=== PATIENT | male | born 1950 | race Caucasian/White ===

== ENCOUNTER 2020-12-19 12:51 | Outpatient (CLI) | payer MEDICARE | END 2020-12-19 12:52 | disposition home or self-care (01) | LOC: ULT 12:51 | PROVIDERS: ATTEND Internal Medicine Hematology & Oncology | DX: Z51.11 Encounter for antineoplastic chemotherapy (principal); C90.00 Multiple myeloma not having achieved remission; I08.3 Combined rheumatic disorders of mitral, aortic and tricuspid valves | CPT/HCPCS: 93306 ==

== ENCOUNTER 2020-12-22 07:35 | Outpatient (CLI) | payer MEDICARE | END 2020-12-22 07:36 | disposition home or self-care (01) | LOC: PET 07:35 | PROVIDERS: ATTEND Internal Medicine Hematology & Oncology | DX: C90.00 Multiple myeloma not having achieved remission (principal); M89.9 Disorder of bone, unspecified | CPT/HCPCS: 78816; A9552 ==

== ENCOUNTER 2021-01-30 09:09 | Inpatient (IN) | payer MEDICARE ==
[2021-01-30] MEDS ORDERED: Iopamidol-370 76% 500 ML 1 ML ONE (09:19)
[2021-01-30 09:56] LABS: Mean Corpuscular HGB CONC 33.8 g/dL (32.0-36.0); Mean Corpuscular Hemoglobin 29.8 pg (27.0-31.0); Mean Corpuscular Volume 88.3 fL (78.0-98.0); Mean Platelet Volume 8.7 fL (7.4-10.4); Platelet Count 225 thou/uL (130-400); RBC Distribution Width 15.6 % (11.5-14.5); Red Blood Cell (RBC) Count 3.02 mill/uL (4.70-6.10); White Blood Cell (WBC) Count 16.1 thou/uL (4.8-10.8)
[2021-01-30] MEDS ORDERED: Ketorolac Tromethamine 30 MG/ML VIAL ONE (09:59)
[2021-01-30 10:07] LABS: ALT (SGPT) 223 U/L (8-55); AST (SGOT) 176 U/L (5-34); Albumin 2.6 g/dL (3.4-4.8); Alkaline Phosphatase 197 U/L (40-110); Anion Gap 17 mmol/L (10-20); BUN (Urea Nitrogen) 39 mg/dL (8.4-25.7); Bilirubin, Total 0.3 mg/dL (0.2-1.2); Calc. Creatinine Clearance 0 mL/min (70-130); Carbon Dioxide 13 mmol/L (23-31); Chloride 109 mmol/L (98-107); Glucose 166 mg/dL (80-115); Lipase 16 U/L (8-78); Protein, Total 5.6 g/dL (5.8-8.1); Sodium 136 mmol/L (136-145)
[2021-01-30 10:23] LABS: Anisocytosis SLIGHT = 6-15 cells (100X) (0-5/hpf); Band 21 % (5-11); Eosinophils 1 % (0-10); Lymphocytes 3 % (21-51); MDiff Complete? YES; Metamyelocyte 1 % (0-0); Monocytes 2 % (0-10); Neutrophil 72 % (42-75); Platelet Morphology Comment Appears Adequate; Poikilocytosis SLIGHT = 6-15 cells (100X) (0-5/hpf)
[2021-01-30] MEDS ORDERED: Cefepime 2 GM VIAL ONE (11:38)
[2021-01-30] MEDS ORDERED: Vancomycin 1 GM/200 ML BAG ONE (12:22)
[2021-01-30 13:06] LABS: Lactic Acid 2.6 mmol/L (0.5-2.2)
[2021-01-30] MEDS ORDERED: Ondansetron ODT 4 MG TAB PO PRN (14:07)
[2021-01-30 14:09] LABS: SARS-CoV-2 NAA Rapid Test Not Detected (NotDetected)
[2021-01-30] MEDS ORDERED: Potassium Chloride 20 MEQ TAB PO SCH (14:30)
[2021-01-30 15:41] VITALS: BMI 25.8
[2021-01-30] MEDS: Nicotine 14 MG PATCH TD SCH (16:33)
[2021-01-30] MEDS: Lactated Ringer's 1,000 ML IV SCH (20:17)
[2021-01-30 21:15] LABS: HBCM Index 0.06 S/CO (0-0.79); HBSAg Index 0.34 S/CO (0-0.99); Hep A IgM AB Non-Reactive (NonReactive); Hep A IgM S/CO 0.13 S/CO (0-0.79); Hep B Surf Ag Non-Reactive S/CO (NonReactive); Hep C IgG Ab Non-Reactive (NonReactive); Hep C Index 0.05 S/CO (0-0.79); Hepatitis B Core IgM Abs Non-Reactive (NonReactive)
[2021-01-31] MEDS: Lactated Ringer's 1,000 ML IV SCH ×4 (01:42→20:19)
[2021-01-31] MEDS: traMADol HCl 50 MG TAB PO PRN ×2 (01:42→09:43)
[2021-01-31 04:20] LABS: ALT (SGPT) 257 U/L (8-55); AST (SGOT) 208 U/L (5-34); Albumin 2.2 g/dL (3.4-4.8); Alkaline Phosphatase 173 U/L (40-110); Anion Gap 11 mmol/L (10-20); BUN (Urea Nitrogen) 39 mg/dL (8.4-25.7); Bilirubin, Total 0.3 mg/dL (0.2-1.2); Calc. Creatinine Clearance 47 mL/min (70-130); Carbon Dioxide 16 mmol/L (23-31); Chloride 114 mmol/L (98-107); Globulin 2.2 g/dL (2.4-3.5); Glucose 101 mg/dL (80-115); Potassium 3.3 mmol/L (3.5-5.1); Protein, Total 4.4 g/dL (5.8-8.1); Sodium 138 mmol/L (136-145)
[2021-01-31 04:23] LABS: Calcium 5.5 mg/dL (7.8-10.44); Hemoglobin 7.3 g/dL (14.0-18.0); Mean Corpuscular HGB CONC 34.5 g/dL (32.0-36.0); Mean Corpuscular Hemoglobin 30.4 pg (27.0-31.0); Mean Corpuscular Volume 88.4 fL (78.0-98.0); Mean Platelet Volume 8.6 fL (7.4-10.4); Platelet Count 168 thou/uL (130-400); RBC Distribution Width 15.4 % (11.5-14.5); Red Blood Cell (RBC) Count 2.39 mill/uL (4.70-6.10)
[2021-01-31] MEDS ORDERED: Potassium Chloride 20 MEQ TAB PO SCH (04:45)
[2021-01-31] MEDS ORDERED: Calcium Gluconate 9.2 MEQ in Sodium Chloride 0.9% 100 ML IVPB SCH ×2 (05:00→12:30)
[2021-01-31 05:25] LABS: Band 28 % (5-11); Eosinophils 10 % (0-10); Lymphocytes 7 % (21-51); MDiff Complete? YES; Neutrophil 54 % (42-75); Reactive Lymphocytes 1 % (0-10)
[2021-01-31 06:25] LABS: Magnesium 1.4 mg/dL (1.6-2.6); Phosphorus 2.7 mg/dL (2.3-4.7)
[2021-01-31] MEDS ORDERED: Magnesium Sulfate 2 GM in Sodium Chloride 0.9% 100 ML IVPB SCH (06:30)
[2021-01-31] MEDS ORDERED: Magnesium 2 GM/50 ML 2 GM in Premix Bag 1 BAG IVPB SCH ×2 (06:45→12:45)
[2021-01-31] MEDS: Enoxaparin Sodium 40 MG/0.4 ML SYRINGE SC SCH (08:17)
[2021-01-31] MEDS: Aspirin Chewable 81 MG TAB PO SCH (08:17)
[2021-01-31 08:18] LABS: Lactic Acid 1.6 mmol/L (0.5-2.2)
[2021-01-31 08:21] LABS: Iron 24 ug/dL (65-175); Iron Binding Capacity, Total 135 mcg/dL (261-462)
[2021-01-31 08:54] LABS: Iron 26 ug/dL (65-175); Iron Binding Capacity, Total 139 mcg/dL (261-462)
[2021-01-31] MEDS ORDERED: Iron Sucrose Complex 200 MG in Sodium Chloride 0.9% 100 ML IVPB SCH (10:45)
[2021-01-31] MEDS ORDERED: Iron, Sodium Ferric Gluconate 250 MG in Sodium Chloride 0.9% 250 ML 250 ML IVPB SCH (11:30)
[2021-01-31 12:01] LABS: Anion Gap 12 mmol/L (10-20); BUN (Urea Nitrogen) 33 mg/dL (8.4-25.7); Calc. Creatinine Clearance 53 mL/min (70-130); Carbon Dioxide 16 mmol/L (23-31); Chloride 114 mmol/L (98-107); Glucose 91 mg/dL (80-115); Magnesium 1.3 mg/dL (1.6-2.6); Potassium 3.7 mmol/L (3.5-5.1); Sodium 138 mmol/L (136-145)
[2021-01-31] MEDS ORDERED: Magnesium Sulfate 2 GM in Sodium Chloride 0.9% 100 ML IVPB ONE (12:20)
[2021-01-31] MEDS: Nicotine 14 MG PATCH TD SCH (15:05)
[2021-02-01 03:52] LABS: Hemoglobin 7.3 g/dL (14.0-18.0); Mean Corpuscular Hemoglobin 30.2 pg (27.0-31.0); Mean Corpuscular Volume 88.8 fL (78.0-98.0); Mean Platelet Volume 8.9 fL (7.4-10.4); Platelet Count 151 thou/uL (130-400); RBC Distribution Width 15.8 % (11.5-14.5); Red Blood Cell (RBC) Count 2.42 mill/uL (4.70-6.10); White Blood Cell (WBC) Count 9.9 thou/uL (4.8-10.8)
[2021-02-01] MEDS: Lactated Ringer's 1,000 ML IV SCH (04:05)
[2021-02-01 04:09] LABS: ALT (SGPT) 398 U/L (8-55); AST (SGOT) 290 U/L (5-34); Alkaline Phosphatase 172 U/L (40-110); Anion Gap 8 mmol/L (10-20); BUN (Urea Nitrogen) 27 mg/dL (8.4-25.7); Bilirubin, Total 0.3 mg/dL (0.2-1.2); Calc. Creatinine Clearance 67 mL/min (70-130); Calcium 6.1 mg/dL (7.8-10.44); Carbon Dioxide 16 mmol/L (23-31); Chloride 115 mmol/L (98-107); Glucose 87 mg/dL (80-115); Magnesium 1.6 mg/dL (1.6-2.6); Phosphorus 2.8 mg/dL (2.3-4.7); Potassium 3.2 mmol/L (3.5-5.1); Sodium 136 mmol/L (136-145)
[2021-02-01 04:40] LABS: Band 15 % (5-11); Eosinophils 3 % (0-10); Lymphocytes 7 % (21-51); MDiff Complete? YES; Monocytes 5 % (0-10); Neutrophil 70 % (42-75)
[2021-02-01] MEDS ORDERED: Potassium Chloride 20 MEQ TAB PO SCH (08:00)
[2021-02-01 08:28] VITALS: BP 120/58; TEMP 98.2
[2021-02-01] MEDS: traMADol HCl 50 MG TAB PO PRN (08:46)
[2021-02-01] MEDS: Aspirin Chewable 81 MG TAB PO SCH (08:46)
[2021-02-01] MEDS: Enoxaparin Sodium 40 MG/0.4 ML SYRINGE SC SCH (08:46)
[2021-02-01] MEDS ORDERED: Magnesium 2 GM/50 ML 2 GM in Premix Bag 1 BAG IVPB SCH (09:30)
[2021-02-01] MEDS: Nicotine 14 MG PATCH TD SCH (16:35)
[2021-02-01 17:08] LABS: ALT (SGPT) 473 U/L (8-55); AST (SGOT) 325 U/L (5-34); Albumin 2.1 g/dL (3.4-4.8); Alkaline Phosphatase 196 U/L (40-110); Anion Gap 11 mmol/L (10-20); BUN (Urea Nitrogen) 25 mg/dL (8.4-25.7); Bilirubin, Total 0.3 mg/dL (0.2-1.2); Calc. Creatinine Clearance 71 mL/min (70-130); Calcium 6.3 mg/dL (7.8-10.44); Carbon Dioxide 15 mmol/L (23-31); Chloride 115 mmol/L (98-107); Globulin 2.2 g/dL (2.4-3.5); Glucose 86 mg/dL (80-115); Magnesium 2.1 mg/dL (1.6-2.6); Phosphorus 2.9 mg/dL (2.3-4.7); Potassium 3.6 mmol/L (3.5-5.1); Protein, Total 4.3 g/dL (5.8-8.1); Sodium 137 mmol/L (136-145)
== END 2021-02-01 18:55 | disposition home or self-care (01) | DRG 393 ==
LOC: ERS 09:09 → ERHOLD 12:09 → ONC 15:29
PROVIDERS: ADMIT Family Medicine; ATTEND Family Medicine
DX: K52.1 Toxic gastroenteritis and colitis (principal); E43 Unspecified severe protein-calorie malnutrition; C90.00 Multiple myeloma not having achieved remission; E87.2 Acidosis; N17.9 Acute kidney failure, unspecified; F17.210 Nicotine dependence, cigarettes, uncomplicated; T50.905A Adverse effect of unspecified drugs, medicaments and biological substances, initial encounter; E87.6 Hypokalemia; I12.9 Hypertensive chronic kidney disease with stage 1 through stage 4 chronic kidney disease, or unspecified chronic kidney disease; D72.829 Elevated white blood cell count, unspecified; N18.30 Chronic kidney disease, stage 3 unspecified; D63.1 Anemia in chronic kidney disease; T45.1X5A Adverse effect of antineoplastic and immunosuppressive drugs, initial encounter; Z20.822 Contact with and (suspected) exposure to COVID-19; E86.0 Dehydration; E83.42 Hypomagnesemia; E83.51 Hypocalcemia; Z68.25 Body mass index [BMI] 25.0-25.9, adult; Z90.49 Acquired absence of other specified parts of digestive tract; Z79.82 Long term (current) use of aspirin; Z79.899 Other long term (current) drug therapy
CPT/HCPCS: 0240U; 36415; 71045; 74177; 76705; 80053; 80074; 82728; 83540; 83550; 83605; 83690; 83735; 84100; 84484; 85025; 87040; 87045; 87046; 87324; 87427; 87449; 93005; 96365; 96367; 96375; J0692; J1650; J1885; J2001; J2916; J3370; J3475; J3490; J7050; Q0162; Q9967

== ENCOUNTER 2021-05-22 15:58 | Inpatient (IN) | payer MEDICARE ==
[~2021-05-22 15:58] MED LIST: Iopamidol-370 76% 500 ML 1 ML ONE
[2021-05-22 17:18] LABS: Hemoglobin 7.2 g/dL (14.0-18.0); Mean Corpuscular Hemoglobin 28.2 pg (27.0-31.0); Mean Corpuscular Volume 91.2 fL (78.0-98.0); RBC Distribution Width 14.5 % (11.5-14.5); Red Blood Cell (RBC) Count 2.56 mill/uL (4.70-6.10); White Blood Cell (WBC) Count 8.5 thou/uL (4.8-10.8)
[2021-05-22 17:23] LABS: INR-International Normal Ratio 1.9; Prothrombin Time 21.8 sec (12.0-14.7)
[2021-05-22 17:26] LABS: ALT (SGPT) 60 U/L (8-55); AST (SGOT) 79 U/L (5-34); Albumin 1.5 g/dL (3.4-4.8); Alkaline Phosphatase 83 U/L (40-110); Anion Gap 10 mmol/L (10-20); BUN (Urea Nitrogen) 29 mg/dL (8.4-25.7); Bilirubin, Total 0.3 mg/dL (0.2-1.2); Calc. Creatinine Clearance 0 mL/min (70-130); Calcium 7.2 mg/dL (7.8-10.44); Carbon Dioxide 18 mmol/L (23-31); Chloride 112 mmol/L (98-107); Globulin 7.5 g/dL (2.4-3.5); Glucose 111 mg/dL (80-115); Potassium 3.4 mmol/L (3.5-5.1); Sodium 137 mmol/L (136-145)
[2021-05-22 17:34] LABS: Band 25 % (5-11); Lymphocytes 21 % (21-51); MDiff Complete? YES; Mean Platelet Volume 9.2 fL (7.4-10.4); Monocytes 16 % (0-10); Neutrophil 38 % (42-75); Platelet Count 49 thou/uL (130-400); Platelet Morphology Comment Appears Decreased
[2021-05-22] MEDS ORDERED: Potassium Chloride 20 MEQ TAB ONE (17:59)
[2021-05-22] MEDS ORDERED: Calcium Carbonate 500 MG ChewTAB ONE (17:59)
[2021-05-22] MEDS ORDERED: Magnesium 2 GM/50 ML BAG (IN WATER) ONE (18:02)
[2021-05-22 18:15] LABS: Magnesium 1.7 mg/dL (1.6-2.6)
[2021-05-22 21:16] LABS: Bacteria/HPF None Seen HPF (None Seen); Bilirubin Negative (Negative); Blood, Urine Negative (Negative); Clarity Clear (Clear); Glucose, Urine (Dipstick) Normal (Negative); Ketone, Urine Negative (Negative); Leukocyte Negative Leu/uL (Negative); Nitrite Negative (Negative); Protein, Urine (Dipstick) 30 mg/dL (Neg-Trace); RBC/HPF 0-3 HPF (0-3); Specific Gravity, Urine 1.022 (1.002-1.036); Squamous Epithelial 0-3 HPF (0-3); Urobilinogen Normal mg/dL (Less than 2); WBC/HPF 0-3 HPF (0-3); pH, Urine 6.5 (5.0-9.0)
[2021-05-22] MEDS ORDERED: Ondansetron ODT 4 MG TAB PO PRN (22:23)
[2021-05-22] MEDS ORDERED: Acetaminophen 325 MG TAB PO PRN (22:23)
[2021-05-22] MEDS ORDERED: Acetaminophen 650 MG Suppository PR PRN (22:23)
[2021-05-22] MEDS ORDERED: Ondansetron PF 4 MG/2 ML Vial IVP PRN (22:23)
[2021-05-23 00:01] VITALS: BMI 21.4
[2021-05-23] MEDS ORDERED: Lactated Ringer's 1,000 ML IV SCH (00:45)
[2021-05-23] MEDS ORDERED: traMADol HCl 50 MG TAB PO PRN (00:50)
[2021-05-23] MEDS: valACYclovir 500 MG TAB PO SCH (08:40)
[2021-05-23] MEDS: Folic Acid 1 MG TAB PO SCH (08:40)
[2021-05-23] MEDS: Allopurinol 300 MG TAB PO SCH (08:40)
[2021-05-23] MEDS: Calcium Carbonate 600 MG + Vit D TAB PO SCH (08:40)
[2021-05-23] MEDS: Magnesium Oxide 400 MG TAB PO SCH ×2 (08:40→20:40)
[2021-05-23] MEDS: Ferrous Sulfate 325 MG TAB PO SCH (08:44)
[2021-05-23] MEDS ORDERED: Pantoprazole 40 MG GRANULES PACKET PO SCH (09:00)
[2021-05-23 09:07] LABS: Anion Gap 10 mmol/L (10-20); BUN (Urea Nitrogen) 26 mg/dL (8.4-25.7); Calc. Creatinine Clearance 60 mL/min (70-130); Calcium 7.1 mg/dL (7.8-10.44); Carbon Dioxide 17 mmol/L (23-31); Chloride 113 mmol/L (98-107); Glucose 84 mg/dL (80-115); Sodium 136 mmol/L (136-145)
[2021-05-23 09:25] LABS: Band 22 % (5-11); Differential Comment Immature Cell(s); Lymphocytes 16 % (21-51); MDiff Complete? YES; Mean Corpuscular HGB CONC 33.1 g/dL (32.0-36.0); Mean Corpuscular Hemoglobin 29.7 pg (27.0-31.0); Mean Corpuscular Volume 89.6 fL (78.0-98.0); Mean Platelet Volume 9.3 fL (7.4-10.4); Metamyelocyte 4 % (0-0); Monocytes 1 % (0-10); Myelocyte 5 % (0-0); Neutrophil 43 % (42-75); Platelet Count 48 thou/uL (130-400); Platelet Morphology Comment Appears Decreased; Polychromasia SLIGHT = 2-3 cells (100X) (0-2/hpf); Reactive Lymphocytes 6 % (0-10); Reflex for Review?? NO; Rouleaux Formation MODERATE= 6-15 cells (100X) (None Seen); White Blood Cell (WBC) Count 10.8 thou/uL (4.8-10.8)
[2021-05-23 14:43] LABS: SARS-CoV-2 PCR by NAA Not Detected (NotDetected)
[2021-05-23 18:53] LABS: Magnesium 1.7 mg/dL (1.6-2.6)
[2021-05-23] MEDS: traMADol HCl 50 MG TAB PO PRN (20:39)
[2021-05-23] MEDS: Pantoprazole 40 MG VIAL IVP SCH (20:40)
[2021-05-23] MEDS: Lisinopril 20 MG TAB PO SCH (20:40)
[2021-05-24] MEDS: Ferrous Sulfate 325 MG TAB PO SCH (07:51)
[2021-05-24] MEDS: Pantoprazole 40 MG VIAL IVP SCH ×2 (07:52→20:57)
[2021-05-24] MEDS: valACYclovir 500 MG TAB PO SCH (07:52)
[2021-05-24] MEDS: Allopurinol 300 MG TAB PO SCH (07:52)
[2021-05-24] MEDS: Magnesium Oxide 400 MG TAB PO SCH ×2 (07:52→20:57)
[2021-05-24] MEDS: Calcium Carbonate 600 MG + Vit D TAB PO SCH (07:52)
[2021-05-24] MEDS: Folic Acid 1 MG TAB PO SCH (07:52)
[2021-05-24 08:10] LABS: Hemoglobin 7.4 g/dL (14.0-18.0)
[2021-05-24 08:18] LABS: Anion Gap 9 mmol/L (10-20); BUN (Urea Nitrogen) 28 mg/dL (8.4-25.7); Calc. Creatinine Clearance 64 mL/min (70-130); Calcium 6.8 mg/dL (7.8-10.44); Carbon Dioxide 15 mmol/L (23-31); Chloride 115 mmol/L (98-107); Glucose 67 mg/dL (80-115); Magnesium 1.6 mg/dL (1.6-2.6); Potassium 3.4 mmol/L (3.5-5.1); Sodium 136 mmol/L (136-145)
[2021-05-24] MEDS ORDERED: FLU VACC QS2021-22(65YR UP)/PF 240 MCG/0.7 ML SYRINGE IM ONE (09:00)
[2021-05-24] MEDS ORDERED: PROPOFOL 200 MG/20 ML VIAL ONE (09:50)
[2021-05-24] MEDS ORDERED: Potassium Chloride 20 MEQ in Premix Bag 1 BAG IVPB SCH (13:30)
[2021-05-24] MEDS ORDERED: Magnesium 2 GM/50 ML 2 GM in Premix Bag 1 BAG IVPB SCH (13:30)
[2021-05-24] MEDS: traMADol HCl 50 MG TAB PO PRN (20:56)
[2021-05-24] MEDS: Lisinopril 20 MG TAB PO SCH (20:57)
[2021-05-25 04:35] LABS: Hemoglobin 6.4 g/dL (14.0-18.0)
[2021-05-25 04:59] LABS: ALT (SGPT) 50 U/L (8-55); AST (SGOT) 57 U/L (5-34); Albumin 1.2 g/dL (3.4-4.8); Alkaline Phosphatase 67 U/L (40-110); Anion Gap 9 mmol/L (10-20); BUN (Urea Nitrogen) 26 mg/dL (8.4-25.7); Bilirubin, Total 0.3 mg/dL (0.2-1.2); Calc. Creatinine Clearance 60 mL/min (70-130); Calcium 6.8 mg/dL (7.8-10.44); Carbon Dioxide 16 mmol/L (23-31); Chloride 113 mmol/L (98-107); Globulin 6.7 g/dL (2.4-3.5); Glucose 65 mg/dL (80-115); Magnesium 1.9 mg/dL (1.6-2.6); Potassium 3.6 mmol/L (3.5-5.1); Protein, Total 7.9 g/dL (5.8-8.1); Sodium 134 mmol/L (136-145)
[2021-05-25] MEDS: Folic Acid 1 MG TAB PO SCH (08:46)
[2021-05-25] MEDS: Ferrous Sulfate 325 MG TAB PO SCH (08:46)
[2021-05-25] MEDS: Calcium Carbonate 600 MG + Vit D TAB PO SCH (08:46)
[2021-05-25] MEDS: Pantoprazole 40 MG VIAL IVP SCH ×2 (08:46→20:18)
[2021-05-25] MEDS: valACYclovir 500 MG TAB PO SCH (08:46)
[2021-05-25] MEDS: Magnesium Oxide 400 MG TAB PO SCH ×2 (08:46→20:18)
[2021-05-25] MEDS: Allopurinol 300 MG TAB PO SCH (08:46)
[2021-05-25 09:07] LABS: Platelet Count 46 thou/uL (130-400)
[2021-05-25] MEDS: traMADol HCl 50 MG TAB PO PRN ×2 (13:05→20:19)
[2021-05-25 16:15] LABS: Hemoglobin 7.3 g/dL (14.0-18.0)
[2021-05-25] MEDS: Phytonadione 5 MG TAB PO SCH ×2 (16:35→20:19)
[2021-05-25] MEDS: Lisinopril 20 MG TAB PO SCH (20:18)
[2021-05-26 05:03] LABS: Hemoglobin 7.5 g/dL (14.0-18.0); Platelet Count 47 thou/uL (130-400)
[2021-05-26 05:18] LABS: ALT (SGPT) 55 U/L (8-55); AST (SGOT) 61 U/L (5-34); Albumin 1.2 g/dL (3.4-4.8); Alkaline Phosphatase 69 U/L (40-110); Anion Gap 11 mmol/L (10-20); BUN (Urea Nitrogen) 27 mg/dL (8.4-25.7); Bilirubin, Total 0.4 mg/dL (0.2-1.2); Calc. Creatinine Clearance 59 mL/min (70-130); Calcium 6.3 mg/dL (7.8-10.44); Carbon Dioxide 14 mmol/L (23-31); Chloride 113 mmol/L (98-107); Globulin 6.9 g/dL (2.4-3.5); Potassium 3.6 mmol/L (3.5-5.1); Protein, Total 8.1 g/dL (5.8-8.1); Sodium 134 mmol/L (136-145)
[2021-05-26 05:21] LABS: Glucose 53 mg/dL (80-115)
[2021-05-26] MEDS: valACYclovir 500 MG TAB PO SCH (08:42)
[2021-05-26] MEDS: Allopurinol 300 MG TAB PO SCH (08:42)
[2021-05-26] MEDS: Calcium Carbonate 600 MG + Vit D TAB PO SCH (08:42)
[2021-05-26] MEDS: Magnesium Oxide 400 MG TAB PO SCH ×2 (08:42→21:47)
[2021-05-26] MEDS: Folic Acid 1 MG TAB PO SCH (08:42)
[2021-05-26] MEDS: Pantoprazole 40 MG VIAL IVP SCH ×2 (08:42→21:48)
[2021-05-26] MEDS: Phytonadione 5 MG TAB PO SCH ×3 (08:42→21:47)
[2021-05-26] MEDS: Ferrous Sulfate 325 MG TAB PO SCH (08:42)
[2021-05-26] MEDS: traMADol HCl 50 MG TAB PO PRN (16:07)
[2021-05-26] MEDS: Lisinopril 20 MG TAB PO SCH (21:47)
[2021-05-27 07:05] LABS: ALT (SGPT) 54 U/L (8-55); AST (SGOT) 50 U/L (5-34); Albumin 1.2 g/dL (3.4-4.8); Alkaline Phosphatase 68 U/L (40-110); Anion Gap 9 mmol/L (10-20); BUN (Urea Nitrogen) 24 mg/dL (8.4-25.7); Bilirubin, Total 0.3 mg/dL (0.2-1.2); Calc. Creatinine Clearance 53 mL/min (70-130); Calcium 6.6 mg/dL (7.8-10.44); Carbon Dioxide 16 mmol/L (23-31); Chloride 114 mmol/L (98-107); Globulin 7.3 g/dL (2.4-3.5); Glucose 71 mg/dL (80-115); Potassium 3.8 mmol/L (3.5-5.1); Protein, Total 8.5 g/dL (5.8-8.1); Sodium 135 mmol/L (136-145)
[2021-05-27 07:22] LABS: Hemoglobin 7.2 g/dL (14.0-18.0); Platelet Count 40 thou/uL (130-400)
[2021-05-27] MEDS: valACYclovir 500 MG TAB PO SCH (08:32)
[2021-05-27] MEDS: Folic Acid 1 MG TAB PO SCH (08:32)
[2021-05-27] MEDS: Pantoprazole 40 MG VIAL IVP SCH ×2 (08:32→20:57)
[2021-05-27] MEDS: Ferrous Sulfate 325 MG TAB PO SCH (08:32)
[2021-05-27] MEDS: Magnesium Oxide 400 MG TAB PO SCH ×2 (08:32→20:56)
[2021-05-27] MEDS: Phytonadione 5 MG TAB PO SCH ×3 (08:32→20:56)
[2021-05-27] MEDS: Calcium Carbonate 600 MG + Vit D TAB PO SCH (08:33)
[2021-05-27] MEDS: Allopurinol 300 MG TAB PO SCH (08:33)
[2021-05-27] MEDS: Lisinopril 20 MG TAB PO SCH (20:56)
[2021-05-28 05:58] LABS: Hemoglobin 7.3 g/dL (14.0-18.0); Platelet Count 40 thou/uL (130-400)
[2021-05-28 06:21] LABS: ALT (SGPT) 50 U/L (8-55); AST (SGOT) 45 U/L (5-34); Albumin 1.2 g/dL (3.4-4.8); Alkaline Phosphatase 69 U/L (40-110); Anion Gap 10 mmol/L (10-20); BUN (Urea Nitrogen) 22 mg/dL (8.4-25.7); Calc. Creatinine Clearance 60 mL/min (70-130); Calcium 6.4 mg/dL (7.8-10.44); Carbon Dioxide 15 mmol/L (23-31); Chloride 114 mmol/L (98-107); Globulin 7.5 g/dL (2.4-3.5); Glucose 70 mg/dL (80-115); Potassium 3.7 mmol/L (3.5-5.1); Protein, Total 8.7 g/dL (5.8-8.1); Sodium 135 mmol/L (136-145)
[2021-05-28 06:41] LABS: Bilirubin, Total 0.2 mg/dL (0.2-1.2)
[2021-05-28] MEDS: Phytonadione 5 MG TAB PO SCH ×2 (08:37→15:52)
[2021-05-28] MEDS: Pantoprazole 40 MG VIAL IVP SCH (08:37)
[2021-05-28] MEDS: valACYclovir 500 MG TAB PO SCH (08:38)
[2021-05-28] MEDS: Calcium Carbonate 600 MG + Vit D TAB PO SCH (08:38)
[2021-05-28] MEDS: Ferrous Sulfate 325 MG TAB PO SCH (08:38)
[2021-05-28] MEDS: Folic Acid 1 MG TAB PO SCH (08:38)
[2021-05-28] MEDS: Allopurinol 300 MG TAB PO SCH (08:38)
[2021-05-28 09:23] VITALS: BP 141/61; TEMP 98.8
[2021-05-28] MEDS: Magnesium Oxide 400 MG TAB PO SCH (11:25)
== END 2021-05-28 16:20 | DRG 840 ==
LOC: ERS 15:58 → MSONC 21:55
PROVIDERS: ADMIT Family Medicine; ATTEND Family Medicine
PROC: 30233N1 Transfusion of Nonautologous Red Blood Cells into Peripheral Vein, Percutaneous Approach (ICD-10-PCS; 2021-05-23)
PROC: 0DJ08ZZ Inspection of Upper Intestinal Tract, Via Natural or Artificial Opening Endoscopic (ICD-10-PCS; principal; 2021-05-24)
DX: C90.00 Multiple myeloma not having achieved remission (principal); E43 Unspecified severe protein-calorie malnutrition; K22.10 Ulcer of esophagus without bleeding; J90 Pleural effusion, not elsewhere classified; D64.9 Anemia, unspecified; K21.9 Gastro-esophageal reflux disease without esophagitis; I10 Essential (primary) hypertension; F17.210 Nicotine dependence, cigarettes, uncomplicated; M10.9 Gout, unspecified; E86.0 Dehydration; D69.59 Other secondary thrombocytopenia; K31.819 Angiodysplasia of stomach and duodenum without bleeding; E83.42 Hypomagnesemia; K29.80 Duodenitis without bleeding; E87.6 Hypokalemia; Z20.822 Contact with and (suspected) exposure to COVID-19; K57.30 Diverticulosis of large intestine without perforation or abscess without bleeding; R74.01 Elevation of levels of liver transaminase levels; R19.7 Diarrhea, unspecified; Z79.899 Other long term (current) drug therapy; Z90.89 Acquired absence of other organs; Z90.49 Acquired absence of other specified parts of digestive tract; Z68.21 Body mass index [BMI] 21.0-21.9, adult
CPT/HCPCS: 36415; 36416; 36430; 74177; 80048; 80053; 81003; 81015; 82274; 83630; 83735; 85007; 85014; 85018; 85025; 85027; 85049; 85610; 85730; 86850; 86900; 86901; 87015; 87045; 87046; 87206; 87324; 87328; 87329; 87427; 87449; 94760; 96374; 96375; C9113; J2704; J3475; J3480; P9016; Q9967; U0003; U0005